=== PATIENT | female | born 1990 | race Caucasian/White ===

== ENCOUNTER 2017-10-28 11:38 | Emergency (ER) | payer MEDICAID ==
[2017-10-28 13:40] LABS: URINE BLOOD (Dip) POC 2+ (NEGATIVE); URINE GLUCOSE (Dip) POC Negative (NEGATIVE); URINE KETONES (Dip) POC 2+ (NEGATIVE); URINE LEUKOCYTE EST (Dip) POC 1+ (NEGATIVE); URINE NITRITE (Dip) POC Negative (NEGATIVE); URINE TOTAL PROTEIN POC Trace (NEGATIVE)
[2017-10-28] MEDS: DEXAMETHASONE 10 MG/ML 1 ML INJ IV (13:46)
[2017-10-28] MEDS: ONDANSETRON 4 MG INJ IV (13:46)
[2017-10-28] MEDS: SOD CHLORIDE 0.9% 1,000 ML IV (13:46)
[2017-10-28] MEDS: ACETAMINOPHEN 500 MG TAB PO (13:47)
[2017-10-28] MEDS: IBUPROFEN 600 MG TAB PO (13:47)
[2017-10-28 14:04] LABS: MONOTEST Positive (NEG)
== END 2017-10-28 14:59 | disposition home or self-care (01) ==
LOC: FTE 11:38
DX: B27.90 Infectious mononucleosis, unspecified without complication (principal); N39.0 Urinary tract infection, site not specified
CPT/HCPCS: 81003; 81025; 86308; 87880; 96361; 96374; 96375; 99284-25

== ENCOUNTER 2018-09-08 23:00 | Emergency (ER) | payer MEDICAID | END 2018-09-09 00:22 | disposition home or self-care (01) | LOC: FTE 09-09 00:22 | DX: D17.9 Benign lipomatous neoplasm, unspecified (principal); F17.210 Nicotine dependence, cigarettes, uncomplicated | CPT/HCPCS: 99283; Z7502 ==

== ENCOUNTER 2018-11-08 19:44 | Emergency (ER) | payer MEDICAID ==
[2018-11-08 20:56] LABS: URINE BLOOD (Dip) POC Trace-lysed (NEGATIVE); URINE GLUCOSE (Dip) POC Negative (NEGATIVE); URINE KETONES (Dip) POC Negative (NEGATIVE); URINE LEUKOCYTE EST (Dip) POC 2+ (NEGATIVE); URINE NITRITE (Dip) POC Negative (NEGATIVE); URINE TOTAL PROTEIN POC Negative (NEGATIVE)
[2018-11-08] MEDS: IBUPROFEN 600 MG TAB PO (20:59)
[2018-11-08] MEDS: ONDANSETRON (ODT) 4 MG TAB ODT (20:59)
== END 2018-11-08 22:10 | disposition home or self-care (01) ==
LOC: FTE 19:44
DX: R07.89 Other chest pain (principal); N30.00 Acute cystitis without hematuria
CPT/HCPCS: 71045; 81003; 81025; 93005; 99284-25